=== PATIENT | female | born 1990 | race Caucasian/White ===

== ENCOUNTER 2022-05-21 09:31 | Emergency (ER) | payer OTHER ==
--- NOTE | 2022-05-21 10:45 | ERPHSYRPT ---
- History of Present Illness Time Seen by Provider: 05/21/22 16:40 Source: patient Exam Limitations: no limitations Patient Subjective Stated Complaint: pt here for dizziness that started this morning at work, with some nausea, no trauma Triage Nursing Assessment: pt alert, arrived per wc, resp easy, skin w/d/p. pupils equal and reactive, able to undress self, no edema noted Physician History: Patient is a 31-year-old female presents to our ED for evaluation of acute onset dizziness. Patient states she was at work this morning. Patient began to feel dizzy. Dizziness worse when she moves her head. Symptoms improve at rest. Patient had an episode of horizontal diplopia and mild blurred vision.. No vomiting. No true fever. No headache. No photophobia. No meningeal signs. Patient has history of migraines. However she has never had these particular symptoms. Patient that she is otherwise healthy. She voices no other complaints or concerns at this time. Portions of this note were created with voice recognition technology. There may be grammatical, spelling, punctuation or sound alike errors Timing/Duration: today Severity: moderate Modifying Factors: Improves With: nothing Associated Symptoms: other (Double vision) Allergies/Adverse Reactions: acetaminophen [From Fioricet] Allergy (Verified 05/21/22 10:18) butalbital [From Fioricet] Allergy (Verified 05/21/22 10:18) caffeine [From Fioricet] Allergy (Verified 05/21/22 10:18) Home Medications: Duloxetine HCl [Cymbalta] 40 mg PO DAILY 05/21/22 [History] Hx Influenza Vaccination/Date Given: Yes Hx Pneumococcal Vaccination/Date Given: No Immunizations Up to Date: Yes Travel Risk - International Travel Have you traveled outside of the country in past 3 weeks: No - Coronavirus Screening Are you exhibiting any of the following symptoms?: No Close contact with a COVID-19 positive Pt in past 14-21 Days: No - Vaccine Status Have you recieved a Covid-19 vaccination: Yes 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: [employer] - Vaccination Dates Date of 2cond Vaccination (if applicable): 2020 - Review of Systems Constitutional: No Symptoms, No Fever, No Chills Eyes: No Symptoms Ears, Nose, & Throat: No Symptoms Respiratory: No Symptoms, No Cough, No Dyspnea Cardiac: No Symptoms, No Chest Pain, No Edema, No Syncope Abdominal/Gastrointestinal: No Symptoms, No Abdominal Pain, No Nausea, No Vomiting, No Diarrhea Genitourinary Symptoms: No Symptoms, No Dysuria Musculoskeletal: No Symptoms, No Back Pain, No Neck Pain Skin: No Symptoms, No Rash Neurological: No Symptoms, No Dizziness, No Focal Weakness, No Sensory Changes Psychological: No Symptoms Endocrine: No Symptoms Hematologic/Lymphatic: No Symptoms Immunological/Allergic: No Symptoms All Other Systems: Reviewed and Negative - Past Medical History Pertinent Past Medical History: No - Past Surgical History Past Surgical History: No - Social History Smoking Status: Former smoker Exposure to second hand smoke: No Drug Use: none Patient Lives Alone: No - Female History Hx Last Menstrual Period: 4 weeks ago Hx Now: No - Nursing Vital Signs Nursing Vital Signs: Initial Vital Signs Temperature 97.1 F 05/21/22 10:06 Pulse Rate 107 H 05/21/22 10:06 Respiratory Rate 18 05/21/22 10:06 Blood Pressure 120/73 05/21/22 10:06 O2 Sat by Pulse Oximetry 100 05/21/22 10:06 Pain Scale Pain Intensity 0 - Physical Exam General Appearance: no apparent distress, alert Eye Exam: PERRL/EOMI, eyes nml inspection Ears, Nose, Throat Exam: normal ENT inspection, TMs normal, pharynx normal, moist mucous membranes Neck Exam: normal inspection, non-tender, supple, full range of motion Respiratory Exam: normal breath sounds, lungs clear, airway intact, No respiratory distress Cardiovascular Exam: regular rate/rhythm, normal heart sounds, normal peripheral pulses Gastrointestinal/Abdomen Exam: soft, normal bowel sounds, No tenderness, No mass Back Exam: normal inspection, normal range of motion, No CVA tenderness, No vertebral tenderness Extremity Exam: normal inspection, normal range of motion, pelvis stable Neurologic Exam: alert, oriented x 3, cooperative, normal mood/affect, nml cerebellar function, nml station & gait, sensation nml, No motor deficits Skin Exam: normal color, warm, dry, No rash Lymphatic Exam: No adenopathy SpO2 Interpretation: normal SpO2: 100 O2 Delivery: Room Air - Course Nursing assessment & vital signs reviewed: Yes EKG Interpreted by Me: RATE (82), Sinus Rhythm, NORMAL AXIS, NORMAL INTERVALS - CT Exams Head CT Interpretation: Tele-radiologist Report Ordered Tests: Active Orders 24 hr Category Date Time Status Daily 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 Care 05/21/22 11:07 Active EKG-ER Only STAT Care 05/21/22 11:06 Active IV Insertion STAT Care 05/21/22 11:06 Active Pulse Oximetry (ED) STAT Care 05/21/22 11:06 Active HEAD WITHOUT CONTRAST [CT] Stat Exams 05/21/22 11:09 Completed MRI BRAIN W/O CONTRAST [MRI] Stat Exams 05/21/22 15:08 Completed CBC W DIFF Stat Lab 05/21/22 11:06 Completed CMP Stat Lab 05/21/22 11:06 Completed CULTURE,URINE Stat Lab 05/21/22 11:50 Received HCG,QUALITATIVE URINE Stat Lab 05/21/22 11:50 Completed TROPONIN Q4H Lab 05/21/22 11:15 Completed TROPONIN Q4H Lab 05/21/22 19:15 Ordered UA W/RFX UR CULTURE Stat Lab 05/21/22 11:50 Completed Medication Summary Generic Name Dose Route Start Last Admin Trade Name Freq PRN Reason Stop Dose Admin Sodium Chloride 1,000 mls @ 100 mls/hr 05/21/22 11:15 05/21/22 11:25 Sodium Chloride 0.9% 1000 Ml IV 06/20/22 11:14 100 mls/hr .Q10H GARRETT Administration Discontinued Medications Generic Name Dose Route Start Last Admin Trade Name Freq PRN Reason Stop Dose Admin Meclizine HCl 25 mg 05/21/22 11:08 05/21/22 11:23 Meclizine Hcl 25 Mg Tablet PO 05/21/22 11:09 25 mg STAT ONE Administration Meclizine HCl Confirm 05/21/22 11:21 Meclizine Hcl 25 Mg Tablet Administered 05/21/22 11:22 Dose 25 mg .ROUTE .STK-MED ONE Lab/Rad Data: Laboratory Result Diagrams 05/21/22 11:06 05/21/22 11:06 Laboratory Results 05/21/22 05/21/22 05/21/22 Range/Units 11:50 11:50 11:15 WBC (4.0-10.5) x10^3/uL RBC (4.1-5.4) x10^6/uL Hgb (12.0-16.0) g/dL Hct (35-47) % MCV (78-100) fL MCH (26-32) pg MCHC (32-36) g/dL RDW (11.5-14.0) % Plt Count (150-450) x10^3/uL MPV (7.5-11.0) fL Gran % (36.0-66.0) % Immature Gran % (Auto) (0.00-0.4) % Nucleat RBC Rel Count (0.00-0.1) % Eos # (Auto) (0-0.5) x10^3/uL Immature Gran # (Auto) (0.00-0.03) x10^3u/L Absolute Lymphs (auto) (1.0-4.6) x10^3/uL Absolute Monos (auto) (0.0-1.3) x10^3/uL Absolute Nucleated RBC (0.00-0.01) x10^3u/L Lymphocytes % (24.0-44.0) % Monocytes % (0.0-12.0) % Eosinophils % (0.00-5.0) % Basophils % (0.0-0.4) % Absolute Granulocytes (1.4-6.9) x10^3/uL Basophils # (0-0.4) x10^3/uL Sodium (137-145) mmol/L Potassium (3.5-5.1) mmol/L Chloride (98-107) mmol/L Carbon Dioxide (22-30) mmol/L Anion Gap (5-15) MEQ/L BUN (7-17) mg/dL Creatinine (0.52-1.04) mg/dL Estimated GFR ML/MIN Glucose (74-106) mg/dL Calcium (8.4-10.2) mg/dL Total Bilirubin (0.2-1.3) mg/dL AST (14-36) U/L ALT (0-35) U/L Alkaline Phosphatase (38-126) U/L Troponin I < 0.012 (0.000-0.034) ng/mL Serum Total Protein (6.3-8.2) g/dL Albumin (3.5-5.0) g/dL Urine Color Yellow (Yellow) Urine Appearance Clear (Clear) Urine pH 6.5 (4.6-8.0) Ur Specific [place] 1.015 (1.005-1.030) Urine Protein Negative (Negative) Urine Glucose (UA) Negative (Negative) mg/dL Urine Ketones Negative (Negative) Urine Blood Moderate A (Negative) Urine Nitrite Negative (Negative) Urine Bilirubin Negative (Negative) Urine Urobilinogen 0.2 (0.2) mg/dL Ur Leukocyte Esterase Negative (Negative) U Hyaline Cast (Auto) NONE SEEN (0-2) /LPF Urine Microscopic RBC 11-20 A (0-5) /HPF Urine Microscopic WBC 0-2 (0-5) /HPF Ur Epithelial Cells Rare (None Seen) /HPF Urine Bacteria Few A (None Seen) /HPF Urine Culture Reflexed YES (NO) Urine HCG, Qual NEGATIVE (Negative) 05/21/22 05/21/22 Range/Units 11:06 11:06 WBC 9.1 (4.0-10.5) x10^3/uL RBC 4.26 (4.1-5.4) x10^6/uL Hgb 11.9 L (12.0-16.0) g/dL Hct 37.4 (35-47) % MCV 87.8 (78-100) fL MCH 27.9 (26-32) pg MCHC 31.8 L (32-36) g/dL RDW 13.2 (11.5-14.0) % Plt Count 306 (150-450) x10^3/uL MPV 11.7 H (7.5-11.0) fL Gran % 54.0 (36.0-66.0) % Immature Gran % (Auto) 0.2 (0.00-0.4) % Nucleat RBC Rel Count 0.0 (0.00-0.1) % Eos # (Auto) 0.30 (0-0.5) x10^3/uL Immature Gran # (Auto) 0.02 (0.00-0.03) x10^3u/L Absolute Lymphs (auto) 3.18 (1.0-4.6) x10^3/uL Absolute Monos (auto) 0.62 (0.0-1.3) x10^3/uL Absolute Nucleated RBC 0.00 (0.00-0.01) x10^3u/L Lymphocytes % 35.0 (24.0-44.0) % Monocytes % 6.8 (0.0-12.0) % Eosinophils % 3.3 (0.00-5.0) % Basophils % 0.7 (0.0-0.4) % Absolute Granulocytes 4.91 (1.4-6.9) x10^3/uL Basophils # 0.06 (0-0.4) x10^3/uL Sodium 138 (137-145) mmol/L Potassium 3.7 (3.5-5.1) mmol/L Chloride 106 (98-107) mmol/L Carbon Dioxide 23 (22-30) mmol/L Anion Gap 12.7 (5-15) MEQ/L BUN 12 (7-17) mg/dL Creatinine 0.76 (0.52-1.04) mg/dL Estimated GFR > 60.0 ML/MIN Glucose 102 (74-106) mg/dL Calcium 8.6 (8.4-10.2) mg/dL Total Bilirubin 0.30 (0.2-1.3) mg/dL AST 23 (14-36) U/L ALT 21 (0-35) U/L Alkaline Phosphatase 89 (38-126) U/L Troponin I (0.000-0.034) ng/mL Serum Total Protein 7.7 (6.3-8.2) g/dL Albumin 4.1 (3.5-5.0) g/dL Urine Color (Yellow) Urine Appearance (Clear) Urine pH (4.6-8.0) Ur Specific [place] (1.005-1.030) Urine Protein (Negative) Urine Glucose (UA) (Negative) mg/dL Urine Ketones (Negative) Urine Blood (Negative) Urine Nitrite (Negative) Urine Bilirubin (Negative) Urine Urobilinogen (0.2) mg/dL Ur Leukocyte Esterase (Negative) U Hyaline Cast (Auto) (0-2) /LPF Urine Microscopic RBC (0-5) /HPF Urine Microscopic WBC (0-5) /HPF Ur Epithelial Cells (None Seen) /HPF Urine Bacteria (None Seen) /HPF Urine Culture Reflexed (NO) Urine HCG, Qual (Negative) - Progress Progress: improved ([facility] neurologist. Telemetry neuro evaluating our patient) Progress Note: Patient is a 31-year-old female presents emergency department for evaluation of acute onset dizziness. Patient symptoms were acute in onset. Physical exam findings were essentially unremarkable. Component likely of complaint was moderate. No significant comorbidities to contribute the patient encounter. Test ordered to include CBC CMP hCG UA. CT head MRI. Laboratory work-up essentially unremarkable. CT head negative. Results of testing were used for medical decision making. Patient received meclizine PO and normal saline IV for symptom relief. Patient reassessed. Symptoms significantly improved. We consulted telemetry neurology. Dr. Oreilly advised on MR RI. MRI was performed in our ED. MRI was negative. Per neurologist recommendations patient may be discharged as long as MRI is negative. Patient reassessed. She is currently asymptomatic. Patient agrees to follow-up with her primary care doctor within 48 hours for reevaluation. Level of EM service provided was moderate. Complexity of problems addressed was moderate. Complexity of data reviewed and analyzed is moderate. Risk of complication o or morbidity/mortality of management was moderate. Patient served as an independent historian. Patient responded successfully to treatment. Patient feels significantly better and requesting discharge. Portions of this note were created with voice recognition technology. There may be grammatical, spelling, punctuation or sound alike errors Per neurologist request patient discharged home with meclizine and friend. 05/21/22 16:51 05/21/22 16:56 Counseled pt/family regarding: lab results, diagnosis, need for follow-up, rad results - Departure Departure Disposition: Home Clinical Impression: Dizziness, Vertigo Condition: Stable Critical Care Time: No Referrals: RENEA FRANK MD [Primary Care Provider] - Follow up/PCP as directed Additional Instructions: Discharge/Care Plan BRANDON LESLIE was seen on 05/21/22 in the Emergency Room. The patient was counseled regarding Diagnosis,Lab results, Imaging studies, need for follow up and when to return to the Emergency Room. Prescriptions given: Discharge Note I have spoken with the patient and/or caregivers. I have explained the patient's condition, diagnosis and treatment plan based on the information available to me at this time. I have answered the patient's and/or caregiver's questions and addressed any concerns. The patient and/or caregivers have as good understanding of the patient's diagnosis, condition and treatment plan as can be expected at this point. The vital signs have been stable. The patient's condition is stable and appropriate for discharge from the emergency department. The patient will pursue further outpatient evaluation with the primary care physician or other designated or consulting physician as outlined in the [facility] instructions. The patient and/or caregivers are agreeable to this plan of care and follow-up instructions have been explained in detail. The patient and/or caregivers have received these instruction. The patient/and or caregivers are aware that any significant change in condition or worsening of symptoms should prompt an immediate return to this or the closest emergency department or call 911. Prescriptions: Ondansetron ODT 4 MG [Zofran Odt 4 mg] 4 mg PO Q6H PRN PRN #10 tablet PRN Reason: Vomiting Meclizine HCl 25 mg [Antivert 25 mg] 25 mg PO DAILY PRN #7 tablet PRN Reason: Dizziness
[2022-05-21] MEDS ORDERED: ANTIVERT 25 MG PO ONE (11:08)
[2022-05-21] MEDS ORDERED: Sodium Chloride 0.9% 1000 ML 1,000 ML IV SCH (11:15)
[2022-05-21] MEDS ORDERED: Sodium Chloride 0.9% 1000 ML 1,000 ML ONE (11:21)
[2022-05-21] MEDS ORDERED: ANTIVERT 25 MG ONE (11:21)
[2022-05-21 11:31] LABS: Absolute Neutrophil Ct (ANC) 4.91 x10^3/uL (1.4-6.9); BASOPHIL % 0.7 % (0.0-0.4); Basophil (Absolute #) 0.06 x10^3/uL (0-0.4); Eosinophil % 3.3 % (0.00-5.0); Hematocrit 37.4 % (35-47); Hemoglobin 11.9 g/dL (12.0-16.0); IMMATURE GRAN # 0.02 x10^3u/L (0.00-0.03); IMMATURE GRAN % 0.2 % (0.00-0.4); Lymphocyte (Absolute #) 3.18 x10^3/uL (1.0-4.6); Mean Cell Volume 87.8 fL (78-100); Mean Corpuscular Hemoglobin 27.9 pg (26-32); Mean Corpuscular Hgb Concent. 31.8 g/dL (32-36); Mean Platelet Volume 11.7 fL (7.5-11.0); Monocyte (Absolute #) 0.62 x10^3/uL (0.0-1.3); Monocytes % 6.8 % (0.0-12.0); Platelet Count 306 x10^3/uL (150-450); Red Blood Count 4.26 x10^6/uL (4.1-5.4); Red Cell Distribution Width 13.2 % (11.5-14.0); White Blood Count 9.1 x10^3/uL (4.0-10.5)
[2022-05-21 12:44] LABS: ALBUMIN 4.1 g/dL (3.5-5.0); BLOOD UREA NITROGEN 12 mg/dL (7-17); CHLORIDE 106 mmol/L (98-107); Calcium 8.6 mg/dL (8.4-10.2); Carbon Dioxide 23 mmol/L (22-30); Creatinine 1 0.76 mg/dL (0.52-1.04); EST GLOMERULAR FILTRATION RATE > 60.0 ML/MIN; Glucose 102 mg/dL (74-106); Potassium 3.7 mmol/L (3.5-5.1); SODIUM 138 mmol/L (137-145); Total Protein 7.7 g/dL (6.3-8.2)
[2022-05-21 12:45] LABS: ALKALINE PHOSPHATASE 89 U/L (38-126); SGOT/AST 23 U/L (14-36); SGPT/ALT 21 U/L (0-35)
[2022-05-21 13:06] LABS: Appearance Clear (Clear); Bilirubin Negative (Negative); Blood Moderate (Negative); Glucose, Urine Negative (Negative); Ketones Negative (Negative); Leukocyte Esterase Negative (Negative); Nitrite Negative (Negative); Ph 6.5 (4.6-8.0); Protein,Urine Dip Negative (Negative); Specific Gravity 1.015 (1.005-1.030); Urobilinogen 0.2 mg/dL (0.2)
[2022-05-21 13:11] LABS: Bacteria Few /HPF (None Seen); Epithelial Cells Rare /HPF (None Seen); Hyaline Casts NONE SEEN /LPF (0-2); WBC 0-2 /HPF (0-5)
--- NOTE | 2022-05-21 13:20 | XRAY ---
Indication: Dizziness. Multiple contiguous axial images obtained through the head without contrast. Comparison: None Normal appearing brain parenchyma, ventricles, and bony calvarium. Visualized paranasal sinuses and mastoid air cells are clear. Impression: Normal CT head without contrast exam.
[2022-05-21 13:22] LABS: ADD URINE CULTURE? YES (NO)
[2022-05-21 13:41] VITALS: BP 114/74
[2022-05-21 14:07] LABS: ANION GAP 12.7 MEQ/L (5-15)
[2022-05-21 14:20] VITALS: PULSE 88
--- NOTE | 2022-05-21 16:29 | XRAY ---
Indication: Nausea and dizziness. Left facial numbness. Normal CT head without contrast exam. Sagittal, coronal, and axial MRI brain performed without contrast using T1, T2, FLAIR, diffusion, and ADC sequences. Comparison: None Ventriculosulcal pattern appears symmetric. No acute intracranial hemorrhage, abnormal extra-axial fluid collection, or mass effect. Diffusion images are negative for restricted signal. Fourth ventricle is midline without hydrocephalus. 7/8 cranial nerve complex bilaterally symmetric. Normal flow void signal within the major intracerebral circulation. Normal appearing craniocervical junction and sella turcica. Paranasal sinuses are clear. Impression: Normal MRI brain without contrast exam.
[2022-05-21 16:42] VITALS: O2SAT 100
== END 2022-05-21 17:09 | disposition home or self-care (01) ==
LOC: ED 09:31
DX: R42 Dizziness and giddiness (principal); H53.8 Other visual disturbances; H53.2 Diplopia; Z79.899 Other long term (current) drug therapy
CPT/HCPCS: 36000; 36415; 70450; 70551; 80053; 81001; 81025; 84484; 85025; 87086; 93005; 94760; 96360; 99284; A9270-GY